=== PATIENT | female | born 1940 | race Caucasian/White ===

== ENCOUNTER 2017-08-18 13:39 | Outpatient (CLI) | payer OTHER | END 2017-08-18 13:40 | disposition home or self-care (01) | LOC: BICMAMMO 13:39 | PROVIDERS: ATTEND Internal Medicine | DX: Z12.31 Encounter for screening mammogram for malignant neoplasm of breast (principal); N64.89 Other specified disorders of breast; Z80.3 Family history of malignant neoplasm of breast | CPT/HCPCS: 77063; 77067 ==

== ENCOUNTER 2017-09-27 14:22 | Outpatient (CLI) | payer OTHER | END 2017-09-27 14:23 | disposition home or self-care (01) | LOC: BICMAMMO 14:22 | PROVIDERS: ATTEND Internal Medicine | DX: N63.20 Unspecified lump in the left breast, unspecified quadrant (principal); R92.2 Inconclusive mammogram; Z80.3 Family history of malignant neoplasm of breast | CPT/HCPCS: G0279 ==

== ENCOUNTER → 2017-10-07 | Day surgery (SDC) | payer OTHER | LOC: BICULT 10:52 | PROVIDERS: ATTEND Internal Medicine | PROC: 0HBU3ZX Excision of Left Breast, Percutaneous Approach, Diagnostic (ICD-10-PCS; principal; 2017-10-07) | DX: C50.412 Malignant neoplasm of upper-outer quadrant of left female breast (principal); Z17.0 Estrogen receptor positive status [ER+] | CPT/HCPCS: 19083; 88305; 88341; 88342; 88360 ==

== ENCOUNTER 2017-10-18 09:30 | Outpatient (CLI) | payer OTHER ==
[2017-10-18] MEDS ORDERED: Gadobenate Dimeglumine 529 MG/1 ML (20ML VIAL) ONE (13:01)
== END 2017-10-18 09:31 | disposition home or self-care (01) ==
LOC: BICMRI 09:30
PROVIDERS: ATTEND Ophthalmology Pediatric Ophthalmology and Strabismus Specialist
DX: H53.2 Diplopia (principal)
CPT/HCPCS: 70553; 82565; A9579

== ENCOUNTER 2017-11-10 11:35 | Outpatient (CLI) | payer OTHER ==
[2017-11-10 13:01] LABS: #Basophils 0.1 thou/uL (0.0-0.2); #Eosinphils 0.2 thou/uL (0.0-0.7); #Lymphocytes 1.8 thou/uL (1.20-3.40); #Monocytes 0.5 thou/uL (0.11-0.59); #Neutrophils 5.2 thou/uL (1.40-6.50); %Basophils 0.8 % (0.0-1.0); %Eosinophils 2.6 % (0.0-10.0); %Lymphocytes 23.2 % (21.0-51.0); %Monocytes 6.6 % (0.0-10.0); %Neutrophils 66.8 % (42.0-75.0); Mean Corpuscular HGB CONC 33.8 g/dL (32.0-36.0); Mean Corpuscular Hemoglobin 30.8 pg (27.0-31.0); Mean Corpuscular Volume 91.1 fL (78.0-98.0); Mean Platelet Volume 8.9 fL (7.4-10.4); Platelet Count 221 thou/uL (130-400); RBC Distribution Width 12.5 % (11.5-14.5); Red Blood Cell (RBC) Count 4.23 mill/uL (4.20-5.40); White Blood Cell (WBC) Count 7.8 thou/uL (4.8-10.8)
[2017-11-10 13:23] LABS: ALT (SGPT) 15 U/L (8-55); AST (SGOT) 21 U/L (5-34); Albumin 4.5 g/dL (3.4-4.8); Alkaline Phosphatase 60 U/L (40-150); Anion Gap 15 mmol/L (10-20); BUN (Urea Nitrogen) 23 mg/dL (9.8-20.1); Bilirubin, Total 0.5 mg/dL (0.2-1.2); Calc. Creatinine Clearance 0 mL/min (70-130); Calcium 10.1 mg/dL (7.8-10.44); Carbon Dioxide 24 mmol/L (23-31); Chloride 102 mmol/L (98-107); Estimated GFR-MDRD 43; Globulin 2.7 g/dL (2.4-3.5); Glucose 99 mg/dL (83-110); Potassium 4.3 mmol/L (3.5-5.1); Protein, Total 7.2 g/dL (6.0-8.3); Sodium 137 mmol/L (136-145)
--- NOTE | 2018-01-31 17:03 | EKG ---
Test Reason : Blood Pressure : / mmHG Vent. Rate : 056 BPM Atrial Rate : 056 BPM P-R Int : 186 ms QRS Dur : 080 ms QT Int : 456 ms P-R-T Axes : 043 -42 008 degrees QTc Int : 440 ms Sinus bradycardia Left axis deviation Possible Anterolateral infarct , age undetermined Abnormal ECG No previous ECGs available Confirmed by EMELYN RIVAS M.D. ([id number]) on 01/31/2018 5:02:51 PM Referred By: BARB Confirmed By:EMELYN RIVAS M.D.
== END 2017-11-10 11:36 | disposition home or self-care (01) ==
LOC: LABBT 11:35
PROVIDERS: ATTEND Surgery
DX: Z01.818 Encounter for other preprocedural examination (principal); C50.912 Malignant neoplasm of unspecified site of left female breast
CPT/HCPCS: 80053; 85025; 93005; 93010

== ENCOUNTER 2017-11-17 06:42 | Day surgery (SDC) | payer OTHER ==
[2017-11-10 12:34] VITALS: BMI 36.6
[2017-11-17] MEDS ORDERED: CEFAZOLIN/Water 2 GM/20 ML SYRINGE ONE (10:07)
[2017-11-17] MEDS ORDERED: Bupivacaine HCl 0.5%/Epinephrine 1:200,000/PF 30 ml Vial ONE ×2 (10:14→10:15)
[2017-11-17] MEDS ORDERED: Isosulfan Blue 50 MG/5 ML VIAL ONE (10:14)
[2017-11-17] MEDS ORDERED: Lidocaine 2% 10 ML INJ ONE (10:14)
--- NOTE | 2017-11-17 10:33 | NM ---
NUCLEAR MEDICINE LYMPHOSCINTIGRAPHY: HISTORY: Malignant neoplasm of the left breast. COMPARISON: None. TECHNIQUE: The patient was administered a total of 0.40 millicuries of technetium 99m filtered sulfur colloid harrison bcutaneously at the 12, 3, 6, and 9 o'clock positions. Imaging was performed. FINDINGS: Images demonstrate a sentinel lymph node in the left axilla. IMPRESSION: Left axillary sentinel lymph node. POS: [facility]
[2017-11-17] MEDS ORDERED: Fentanyl 250 MCG/5 ML VIAL ONE (10:52)
[2017-11-17] MEDS ORDERED: Metoclopramide HCl 10 MG/2 ML VIAL ONE (13:57)
[2017-11-17] MEDS ORDERED: Ondansetron HCl/PF 4 MG/2 ML Vial ONE (13:57)
[2017-11-17] MEDS ORDERED: ePHEDrine/0.9% NaCl/PF SYRINGE 50 mg/10 ml ONE (13:57)
[2017-11-17] MEDS ORDERED: PROPOFOL 200 MG/20 ML VIAL ONE (13:57)
[2017-11-17] MEDS ORDERED: Dexamethasone 20 MG/5 ML VIAL ONE (13:57)
[2017-11-17] MEDS ORDERED: Lidocaine 1% PF 5 ML VIAL ONE (13:57)
--- NOTE | 2017-11-17 14:07 | MMO ---
RADIOGRAPH SURGICAL SPECIMEN: DATE: 11/17/17. HISTORY: A 77-year-old female with breast cancer. Status post excisional surgery following mammographically g uided needle localization. FINDINGS: The specimen containing the localization wire contains the post-biopsy clip as well as the spiculated mass. IMPRESSION: 1. Successful needle localization. 2. Successful surgical excision. BIRADS 6: Known Biopsy Proven Malignancy POS: [facility]
[2017-11-17] MEDS ORDERED: HYDROcodone/Acetaminophen 5/325 mg Tablet ONE (14:12)
--- NOTE | 2017-11-17 15:02 | MMO ---
LEFT BREAST NEEDLE LOCALIZATION FOR SURGERY: HISTORY: Left breast cancer, status post biopsy. FINDINGS: Successful needle localization. The [place] needle wire adjacent to the biopsy clip in the upper outer left breast. Needle and wire were secured to the patient. No immediate postprocedure complication. TECHNIQUE: Consent was obtained to perform a left breast needle localization for surgery. The left breast was c ompressed in the lateral medial projection. Clip was identified. The skin was prepped and draped in sterile fashion. 1% Lidocaine buffered with sodium bicarbonate was used. A 5 cm [place] needle was a dvanced into the left breast via lateral approach. Needle position was confirmed in the LM and CC pr ojection. The wire was deployed. Post-deployment images obtained. Wire and needle are adjacent to the clip. IMPRESSION: Successful needle localization. POS: [facility]
--- NOTE | 2017-11-18 11:23 | OP ---
DATE OF PROCEDURE: 11/17/2017 PREOPERATIVE DIAGNOSIS: Left breast cancer. SURGEON: Jose Maurer M.D. PROCEDURE PERFORMED: Left partial mastectomy with sentinel lymph node biopsy. INDICATIONS: A 77-year-old female who had an abnormal mammogram. 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 FINDINGS: It was very deep nonpalpable lesion right on the chest wall just under the areola upper ou ter left breast. Specimen mammography revealed it did contain the lesion, found one main sentinel no de that was negative by touch prep. There was a smaller lymph node that did not really comment on. DESCRIPTION OF PROCEDURE: After informed consent was obtained, the patient was taken to the operatin g room and given general mask anesthesia, placed in supine position. Her breast and axilla were prep ped and draped in usual fashion. The Neoprobe was used to do a baseline count of about 20. Transcut aneous counts of 50 were found. A transverse axillary incision was performed. Subcu divided sharply and a lymph node was found that had Lymphazurin dye into it. It had in vivo counts of 110. It was dissected out. Efferent and afferent lymphatics ligated with 3-0 Vicryl ties. Ex vivo counts of 130 sent as sentinel node #1. There was residual counts around. There was one area of 40 and a tiny li ttle colored lymph node was found quite up 2 mm. This was sent as a separate sentinel node. Residua l counts were all less than 30. While waiting on that, a circum-areolar incision was performed. Sub cu divided sharply and the needle was found. It was brought through the skin and a core of breast ti ssue excised around the needle. This was then marked with the needle lateral blue suture anterior, w perez suture superior and sent to mammography, revealed it did contain the biopsy clip sent to [facility]iqu[facility] hern[facility] for further analysis. Hemostasis was achieved with electrocautery. The wound was thoroughly irri gated. Irrigation fluid removed. By now, the lymph node came back. It was negative. Because of th e depth of this incision wound up placing a 10-Chinese drain brought out through a separate stab wound and connected the two incisions to drain both of them. The subcu was reapproximated with interrupte d 3-0 Vicryl and the skin closed with a running subcuticular 4-0 Rapide. Steri-Strips applied. Ster ile bandage applied. The patient tolerated the procedure well and was transferred to recovery in goo d condition. Sponge and needle count verified correct x2.
== END 2017-11-17 15:00 | disposition home or self-care (01) ==
LOC: SDC 06:42
PROVIDERS: ATTEND Surgery
PROC: 0HBU0ZZ Excision of Left Breast, Open Approach (ICD-10-PCS; principal; 2017-11-17)
PROC: 07B60ZX Excision of Left Axillary Lymphatic, Open Approach, Diagnostic (ICD-10-PCS; principal; 2017-11-17)
DX: C50.812 Malignant neoplasm of overlapping sites of left female breast (principal); I10 Essential (primary) hypertension; E78.00 Pure hypercholesterolemia, unspecified; E11.9 Type 2 diabetes mellitus without complications; Z88.5 Allergy status to narcotic agent; Z88.2 Allergy status to sulfonamides; Z87.891 Personal history of nicotine dependence; Z79.899 Other long term (current) drug therapy
CPT/HCPCS: 19281; 76098; 78195; 88307; 88331; 88342; A9541; J0131; J0670; J1100; J2001; J2405; J2704; J2765; J3010; Q9968